=== PATIENT | female | born 1975 ===

== ENCOUNTER 2021-06-18 09:23 | Outpatient (CLI) | payer OTHER | END 2021-06-18 10:15 | disposition home or self-care (01) | LOC: SONOGRAMA 09:23 | PROVIDERS: ATTEND Pathology Anatomic Pathology & Clinical Pathology | DX: E04.1 Nontoxic single thyroid nodule (principal) ==

== ENCOUNTER 2022-10-05 08:39 | Outpatient (CLI) | payer OTHER | END 2022-10-05 12:16 | disposition home or self-care (01) | LOC: SONOGRAMA 08:39 | DX: R10.13 Epigastric pain (principal) ==

== ENCOUNTER 2023-05-03 15:21 | Outpatient (CLI) | payer OTHER | END 2023-05-03 15:23 | disposition home or self-care (01) | LOC: SONOGRAMA 15:21 | DX: E04.1 Nontoxic single thyroid nodule (principal) ==

== ENCOUNTER 2023-08-25 10:00 | Outpatient (CLI) | payer OTHER | END 2023-08-25 10:25 | disposition home or self-care (01) | LOC: MAMO-SONO 10:00 | PROVIDERS: ATTEND Surgery | DX: N60.11 Diffuse cystic mastopathy of right breast (principal); N60.12 Diffuse cystic mastopathy of left breast ==

== ENCOUNTER 2024-01-19 07:12 | Outpatient (CLI) | payer OTHER | END 2024-01-19 07:18 | disposition home or self-care (01) | LOC: MRI 07:12 | DX: M25.561 Pain in right knee (principal); S83.91XA Sprain of unspecified site of right knee, initial encounter | CPT/HCPCS: 73721 ==

== ENCOUNTER 2024-01-30 15:10 | Outpatient (CLI) | payer OTHER | END 2024-01-30 15:19 | disposition home or self-care (01) | LOC: RAD 15:10 | PROVIDERS: ATTEND General Practice | DX: M25.561 Pain in right knee (principal); S83.91XA Sprain of unspecified site of right knee, initial encounter ==

== ENCOUNTER 2024-08-29 10:08 | Outpatient (CLI) | payer OTHER | END 2024-08-29 10:25 | disposition home or self-care (01) | LOC: MAMO-SONO 10:08 | PROVIDERS: ATTEND Surgery | DX: N60.11 Diffuse cystic mastopathy of right breast (principal); N60.12 Diffuse cystic mastopathy of left breast; N92.0 Excessive and frequent menstruation with regular cycle ==

== ENCOUNTER 2024-11-19 08:25 | Outpatient (CLI) | payer OTHER | END 2024-11-19 08:30 | disposition home or self-care (01) | LOC: RAD 08:25 | PROVIDERS: ATTEND Orthopaedic Surgery Sports Medicine | DX: M17.0 Bilateral primary osteoarthritis of knee (principal) ==

== ENCOUNTER 2025-04-02 06:59 | Outpatient (CLI) | payer OTHER | END 2025-04-02 07:00 | disposition home or self-care (01) | LOC: RAD 06:59 | PROVIDERS: ATTEND Orthopaedic Surgery Sports Medicine | DX: M23.221 Derangement of posterior horn of medial meniscus due to old tear or injury, right knee (principal) ==

== ENCOUNTER 2025-05-17 06:56 | Outpatient (CLI) | payer OTHER | END 2025-05-17 07:00 | disposition home or self-care (01) | LOC: RAD 06:56 | DX: M17.0 Bilateral primary osteoarthritis of knee (principal) ==

== ENCOUNTER 2025-06-24 14:36 | Outpatient (CLI) | payer OTHER | END 2025-06-24 14:44 | disposition home or self-care (01) | LOC: RAD 14:36 | DX: M79.641 Pain in right hand (principal) ==

== ENCOUNTER 2025-09-05 14:57 | Outpatient (CLI) | payer OTHER | END 2025-09-05 14:58 | disposition home or self-care (01) | LOC: MAMO-SONO 14:57 | PROVIDERS: ATTEND Surgery | DX: N60.11 Diffuse cystic mastopathy of right breast (principal); N60.12 Diffuse cystic mastopathy of left breast ==